=== PATIENT | male | born 1985 | race Native Hawaiian/Other Pacific Islander ===

== ENCOUNTER 2022-05-04 02:41 | Emergency (ER) | payer BC, SELFPAY ==
[2022-05-04 02:41] VITALS: BP 138/71; PULSE 101; RESP 22; TEMP 35.3; O2SAT 98; BMI 28.7
--- NOTE | 2022-05-04 02:54 | ED.MALEGU ---
HPI - Male Genitourinary General Time Seen by Provider: 02:50 Date Seen: 05/04/22 Chief complaint: Urogenital Problems, Male Stated complaint: Groin Pain Time Seen by Provider: 05/04/22 02:54 Source: patient, family and RN notes reviewed Mode of arrival: ambulatory Limitations: no limitations History of Present Illness HPI Narrative: Patient is a very pleasant 36-year-old male in obvious distress who comes to the emergency room with a sudden onset of left flank pain this morning. Patient notes it was sudden in onset and the pain radiated into his left groin after initially being located just in the left flank. This was associated with nausea and inability to find a comfortable position. Patient has not been ill. Denies any dysuria or blood in his urine. He has not had fever or chills. He has no personal history of kidney stones. Denies any recent injury. Related Data Home Medications Medication Instructions Recorded Confirmed No Known Home Medications 05/04/22 05/04/22 Allergies Allergy/AdvReac Type Severity Reaction Status Date / Time No Known Drug Allergies Allergy Verified 05/04/22 03:23 Review of Systems Status of ROS: Reports: 6 or more systems reviewed and unremarkable except as noted in History and below Const: Denies: fever ENMT: Denies: throat pain Cardio: Denies: chest pain, swelling of feet/ankles or shortness of breath with exertion Resp: Denies: shortness of breath or cough GI: Reports: nausea; Denies: abdominal pain, vomiting or diarrhea : Denies: painful urination, urinary frequency, urinary urgency or blood in urine Musculo: Reports: back pain (Left flank) PFSH PFSH Medical History Patient denies medical problems Social History Smoking Status: Former smoker What tobacco products do you use: cigarettes Smoking quit date/years: <= 15 years ago Do you use any of these nicotine containing products: None Second hand tobacco smoke exposure: No How often do you have a drink containing alcohol: never AUDIT-C Alcohol total score: 0 Non-prescribed substance use: denies use service: No Exam Narrative: Exam Narrative: Patient initially in acute distress kneeling next to the bed. Eyes are clear. Oral cavity moist mucous membranes. Heart with regular rate and rhythm. Lungs are clear to auscultation bilaterally. No CVA tenderness with percussion. Abdomen soft nontender. Palpation in the testicular area without evidence of abnormality. No pain with palpation in the scrotum. Lower extremities without edema. Const: Vital Signs, click to edit/add: Vital Signs - 24 hr 05/04/22 02:41 05/04/22 04:00 Temperature 95.5 F L Pulse Rate [Right Pulse Oximeter] 101 H 83 Respiratory Rate 22 20 Blood Pressure [Le ft Upper Arm] 138/71 136/91 H Pulse Oximetry 98 95 Oxygen Delivery Me thod Room Air Documenting provider has reviewed patient's vital signs: yes Course Course Hospital Course: Differential diagnosis includes but is not limited to ureteral colic, nephrolithiasis, muscular strain, shingles, intra-abdominal process. Patient had IV placed. Was given Toradol 15 mg, morphine 4 mg and Zofran 4 mg with only minimal improvement of discomfort. Patient then received Dilaudid 0.5 mg with excellent relief of symptoms. Upon return from CT pain was returning and an additional dose of Dilaudid 0.5 mg was given. Patient has not yet given a urine sample and we are waiting on that collection. Vital Signs Vital signs: Initial Vital Signs Temperature 95.5 F L 05/04/22 02:41 Temperature Source Temporal Artery Scan 05/04/22 02:41 Pulse Rate 101 H 05/04/22 02:41 Respiratory Rate 22 05/04/22 02:41 Blood Pressure 138/71 05/04/22 02:41 Blood Pressure Mean 93 05/04/22 02:41 Blood Pressure Position Standing 05/04/22 02:41 Pulse Oximetry 98 05/04/22 02:41 Oxygen Delivery Method 05/04/22 02:41 Vital Signs Temperature 95.5 F L 05/04/22 02:41 Pulse Rate 101 H 05/04/22 02:41 Respiratory Rate 22 05/04/22 02:41 Blood Pressure 138/71 05/04/22 02:41 Pulse Oximetry 98 05/04/22 02:41 Oxygen Delivery Method 05/04/22 02:41 Temperature 95.5 F L 05/04/22 02:41 Pulse Rate 83 05/04/22 04:00 Respiratory Rate 20 05/04/22 04:00 Blood Pressure 136/91 H 05/04/22 04:00 Pulse Oximetry 95 05/04/22 04:00 Oxygen Delivery Method 05/04/22 02:41 MDM - Male Genitourinary MDM Narrative Medical decision making narrative: 1. Ureteral colic-patient initially given Toradol 15 mg, morphine 4 mg, Zofran 4 mg only minimally helped pain. Patient was then given Dilaudid 0.5 mg x 2 with good pain relief. Ultimately we did given ketamine 20 mg IV piggyback and Ativan 0.5 mg which seems to have helped him quite a bit. It appears patient has a 3 mm stone in the left distal ureter with hematuria but no evidence of UTI. I have asked him to strain his urine from this point on. If he notes that a stone passes and he has pain relief then he does not need further follow-up. However, if he has continued pain and he does not note any stone he will need to be seen by his primary MD. He may need urological consult if this occurs. Of course, if he has worsening pain especially if he starts experiencing fever or persistent vomiting he will need to return to the emergency room. Going home he may use Toradol 10 mg p.o. t.i.d. p.r.n. pain, number 15 via [employer]. For pain not relieved by a Toradol we will need to use oxycodone as we have unfortunately been notified that we have a shortage of [place]. I did speak to patient about oxycodone being addicting. He is to use this minimally. Finally Zofran 4 mg ODT Q 8 hours p.r.n. nausea. A check of the [employer] shows no recent prescriptions. 2. Disposition-home significant other. Return for worsening symptoms. Push fluids. Lab Data Attestation: I reviewed the patient's lab results. Labs: Lab Results 05/04/22 05/04/22 05/04/22 Range/Units 02:55 02:55 05:30 WBC 6.95 (4.50-11.00) K/uL RBC 5.19 (4.30-5.90) m/uL Hgb 14.8 (13.5-17.5) gm/dL Hct 42.6 (37.0-53.0) % MCV 82 (80-100) fL MCH 29 (26-34) pg MCHC 35 (32-36) gm/dL RDW Coeff of Leslie 12.2 (11.5-15.5) % Plt Count 242 (140-440) K/uL Neut % (Auto) 45.7 (42.0-72.0) % Lymph % (Auto) 42.6 (20-44) % [place] % (Auto) 7.2 (0.0-11.0) % Eos % (Auto) 3.7 (0.0-7.0) % Baso % (Auto) 0.4 (0.0-3.0) % Neut # (Auto) 3.17 (1.7-7.0) K/uL Lymph # (Auto) 2.96 H (0.90-2.90) K/uL [place] # (Auto) 0.50 (0.00-0.90) K/UL Eos # (Auto) 0.26 (0.00-0.50) K/uL Baso # (Auto) 0.03 (0.00-0.30) K/uL Sodium 143 (135-149) mmol/L Potassium 4.1 (3.6-5.1) mmol/L Chloride 108 (96-114) mmol/L Carbon Dioxide 24 (20-32) mmol/L BUN 18 (5-24) mg/dL Creatinine 0.9 (0.5-1.5) mg/dL Estimated Creat Clear 114.91 Estimated GFR 112 ml/min Glucose 169 H (60-115) mg/dL Calcium 8.9 (8.4-10.6) mg/dL Urine Color Yellow (Yellow) Urine Appearance Clear (Clear) Urine pH 6.5 (5.0-8.5) Ur Specific [place] >= 1.030 (1.000-1.030) Urine Protein Negative (Negative) Urine Glucose (UA) Negative (Negative) Urine Ketones Negative (Negative) Urine Blood 3+ A (Negative) Urine Nitrite Negative (Negative) Urine Bilirubin Negative (Negative) Urine Urobilinogen 0.2 (0.2-1.0) Ur Leukocyte Esterase Negative (Negative) Urine RBC 10-25 A (0-2) Urine WBC 0-2 (0-5) Ur Squamous Epith Cells Few (None-Few) Urine Bacteria None (None) Imaging Data CT scan - abdomen: Attestation: I have reviewed the pertinent imaging results. Radiologist's impression: [place] [address] Diagnostic Imaging Report Patient: Patricio Wilkerson MR#: [id number] : 1985 Acct:[id number] Loc: ED Service Date: 05/04/[address]: Ordering Physician: Shea Todd M.D. Date of Service: 05/04/22 Procedure(s): CT abdomen pelvis wo con Accession Number(s): [id number] cc: Shea Todd M.D.~ For Patients:? As a result of the Cures Act, medical imaging exams and procedure reports are released immediately into your electronic medical record.? You may view this report before your referring provider.? If you have questions, please contact your health care provider. INDICATION: Left flank and testicle pain. TECHNIQUE: CT abdomen and pelvis without contrast. COMPARISON: None. FINDINGS: Lower chest: Unremarkable. Liver: Normal in size and attenuation. No suspicious masses. Gallbladder and bile ducts: No stones or inflammation. No biliary ductal dilatation. Spleen: Normal in size. No masses. Adrenal glands: Normal in size. No nodules. Pancreas: Unremarkable. No mass or inflammation. Kidneys: 3 mm calculus in the distal left ureter. Minimal upstream left hydroureteronephrosis. Punctate nonobstructive calculus in the left renal lower pole. Right kidney is unremarkable. GI tract: Unremarkable. Normal in caliber. No sign of mass or inflammation. Normal appendix. Lymph nodes: No lymphadenopathy. Vasculature: Unremarkable. Abdominal wall/Omentum/Peritoneum: Unremarkable. No free air or significant free fluid. Pelvis: Unremarkable. No pelvic masses. Bones: Unremarkable for age. IMPRESSION: 1. 3 mm distal left ureteral calculus with minimal upstream hydroureteronephrosis. 2. Punctate left nonobstructive nephrolithiasis. Discharge Plan Discharge Clinical Impression: Colic, ureteral, Nephrolithiasis Patient Disposition: Home, Self-Care Condition: Improved Additional Instructions: Toradol may be used for discomfort. This is an anti-inflammatory much like ibuprofen. For pain not relieved by Toradol you may use oxycodone sparingly. This is an addictive medication and should not be given away or shared with others. If you are nauseated you may use Zofran prior to taking medications. Strain your urine. Follow-up with your primary MD for ongoing symptoms. If you see this stone pass and have resolution of your symptoms you do not need to be seen unless you have continued discomfort. Prescriptions: No Action No Known Home Medications Follow Up/Referrals: Argentina Godoy DO [Primary Care Provider] - Stand Alone Forms: [employer] Info Instructions
--- NOTE | 2022-05-04 02:55 | CRLHL7_ITS ---
For Patients: As a result of the Century Cures Act, medical imaging exams and procedure reports are released immediately into your electronic medical record. You may view this report before your referring provider. If you have questions, please contact your health care provider. INDICATION: Left flank and testicle pain. TECHNIQUE: CT abdomen and pelvis without contrast. COMPARISON: None. FINDINGS: Lower chest: Unremarkable. Liver: Normal in size and attenuation. No suspicious masses. Gallbladder and bile ducts: No stones or inflammation. No biliary ductal dilatation. Spleen: Normal in size. No masses. Adrenal glands: Normal in size. No nodules. Pancreas: Unremarkable. No mass or inflammation. Kidneys: 3 mm calculus in the distal left ureter. Minimal upstream left hydroureteronephrosis. Punctate nonobstructive calculus in the left renal lower pole. Right kidney is unremarkable. GI tract: Unremarkable. Normal in caliber. No sign of mass or inflammation. Normal appendix. Lymph nodes: No lymphadenopathy. Vasculature: Unremarkable. Abdominal wall/Omentum/Peritoneum: Unremarkable. No free air or significant free fluid. Pelvis: Unremarkable. No pelvic masses. Bones: Unremarkable for age. IMPRESSION: 1. 3 mm distal left ureteral calculus with minimal upstream hydroureteronephrosis. 2. Punctate left nonobstructive nephrolithiasis. Please note that all CT scans at this facility use dose modulation, iterative reconstruction, and/or weight-based dosing when appropriate to reduce radiation dose to as low as reasonably achievable. Dictated by Oumar Saeed MD @ 05/04/2022 4:04:29 AM (Electronically Signed)
[2022-05-04] MEDS: KETOROLAC 15 MG/ML inj IVP (03:00)
[2022-05-04] MEDS: ONDANSETRON 2 MG/ML inj 4 MG IVP (03:01)
[2022-05-04] MEDS: MORPHINE 4 MG/ML INJ IVP (03:02)
[2022-05-04 03:05] LABS: Basophils Absolute Auto 0.03 K/uL (0.00-0.30); Basophils Percent Auto 0.4 % (0.0-3.0); Eosinophils Absolute Auto 0.26 K/uL (0.00-0.50); Eosinophils Percent Auto 3.7 % (0.0-7.0); Hematocrit 42.6 % (37.0-53.0); Hemoglobin* 14.8 gm/dL (13.5-17.5); Immature Granulocytes Abs Auto 0.03 K/uL (0.00-0.30); Immature Granulocytes Pct Auto 0.4 %; Lymphocytes Absolute Auto 2.96 K/uL (0.90-2.90); Lymphocytes Percent Auto 42.6 % (20-44); Mean Corpuscular HGB Conc 35 gm/dL (32-36); Mean Corpuscular Hemoglobin 29 pg (26-34); Mean Corpuscular Volume 82 fL (80-100); Monocytes Percent Auto 7.2 % (0.0-11.0); Neutrophils Absolute Auto 3.17 K/uL (1.7-7.0); Neutrophils Percent Auto 45.7 % (42.0-72.0); Platelet Count* 242 K/uL (140-440); RDW Coefficient of Variation % 12.2 % (11.5-15.5); Red Blood Count 5.19 m/uL (4.30-5.90); White Blood Count* 6.95 K/uL (4.50-11.00)
[2022-05-04 03:17] LABS: Chloride* 108 mmol/L (96-114); Potassium* 4.1 mmol/L (3.6-5.1); Sodium* 143 mmol/L (135-149)
[2022-05-04] MEDS: 0.9 % SODIUM CHLORIDE 500 ML 500 ML IV ×2 (03:18→04:20)
[2022-05-04 03:20] LABS: Blood Urea Nitrogen* 18 mg/dL (5-24); Carbon Dioxide* 24 mmol/L (20-32); Creatinine* 0.9 mg/dL (0.5-1.5); Est. Creatinine Clearance* 114.91; Estimated Glomerular Filt Rate 112 ml/min; Glucose* 169 mg/dL (60-115)
[2022-05-04 03:21] LABS: Calcium* 8.9 mg/dL (8.4-10.6)
[2022-05-04] MEDS: HYDROmorphone 0.5 mg/0.5 ml inj IVP ×3 (03:21→07:00)
[2022-05-04 03:39] LABS: Slide Review Reflex No
[2022-05-04 04:00] VITALS: BP 136/91; PULSE 83; RESP 20; O2SAT 95
[2022-05-04] MEDS: LORazepam 2 MG/ML inj 0.5 MG IVP (04:52)
[2022-05-04] MEDS: KETAMINE HCL 20 MG in 0.9 % SODIUM CHLORIDE 100 ml 100 ML 200.4 MG IVPB (04:52)
[2022-05-04 05:57] LABS: Appearance Urine Clear (Clear); Bilirubin Urine Negative (Negative); Blood Urine 3+ (Negative); Color Urine Yellow (Yellow); Glucose Urine Negative (Negative); Ketones Urine Negative (Negative); Leukocyte Esterase Urine Negative (Negative); Nitrite Urine Negative (Negative); Protein Urine Negative (Negative); Specific Gravity Urine >= 1.030 (1.000-1.030); Urobilinogen Urine 0.2 (0.2-1.0); pH Urine 6.5 (5.0-8.5)
[2022-05-04 06:36] LABS: Squamous Epithelial Cell Urine Few (None-Few); WBC Urine 0-2 (0-5)
== END 2022-05-04 07:10 | disposition home or self-care (01) ==
PROVIDERS: Emergency Provider Family Medicine; PCP Family Medicine
DX: N20.2 Calculus of kidney with calculus of ureter (principal)
CPT/HCPCS: 36415; 74176; 80048; 81001; 85025; 96365; 96375; 99284; J1170; J1885; J2060; J2270; J2405; J3490; J7120

== ENCOUNTER 2022-12-24 17:56 | Day surgery (SDC) | payer BC, SELFPAY ==
[2022-12-24 17:59] VITALS: BP 128/88; PULSE 79; RESP 18; TEMP 36.3; O2SAT 100; BMI 28.7
--- NOTE | 2022-12-24 18:05 | ED_ITS ---
HPI - Abdominal Pain General Date Seen: 12/24/22 Chief Complaint: Abdominal Pain Stated Complaint: Abdominal pain Time Seen by Provider: 12/24/22 18:00 History of Present Illness HPI narrative: 37-year-old male with a history of kidney stones (3 mm left ureteral stone diagnosed in the ER here at [facility] on 05/04/22) presents to the ER today for evaluation of abdominal pain. He presents here to the ER with his . He is generally healthy. He does not take any regular medications. No medication allergies. He has not had any recent symptoms. Beginning in mid morning at roughly 11 or 10:00 a.m. this morning he began to have pain in his abdomen. It started in the epigastrium or perhaps slightly to the left midline. There was intense in nature. It felt like he was very hungry. He was mildly nauseous but has not vomited. Pain was fairly bad for a couple of hours this morning and then got better. It never completely resolved. Pain then worsened and became more severe after about 2:30 p.m. nothing really makes it better or worse. It does not really seem to change with position. He has been nauseous but not vomiting. Bowel movements have been normal and brown lately. No urinary symptoms. No fever but he has had some chills this afternoon. He is very uncomfortable. He does not use NSAIDs or other iloe-nqc-qbieqol medications. No trauma. No flank pain. The pain does not radiate. Related Data Home Medications Medication Instructions Recorded Confirmed No Known Home Medications 05/04/22 05/04/22 Allergies Allergy/AdvReac Type Severity Reaction Status Date / Time No Known Drug Allergies Allergy Verified 05/04/22 03:23 [facility] Medical History (Updated 12/24/22 @ 22:13 by Orlin Rodríguez MD) Nephrolithiasis ?N20.0 - Calculus of kidney (ICD-10) Patient denies medical problems ?Z78.9 - Other specified health status (ICD-10) Family History (Updated 12/24/22 @ 22:08 by Orlin Rodríguez MD) Grandfather Kidney stones Social History (Updated 12/24/22 @ 22:10 by Orlin Rodríguez MD) Narrative: He presents to the emergency department with his . He has 3 children ages 3, 8 and 12. 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 He does smoke about 3 cigarettes per day. He drinks alcohol about once every 3 months Smoking Status: Current some day smoker What tobacco products do you use: cigarettes Smoking quit date/years: <= 15 years ago Do you use any of these nicotine containing products: None Second hand tobacco smoke exposure: No How often do you have a drink containing alcohol: monthly or less AUDIT-C Alcohol total score: 1 Non-prescribed substance use: denies use service: No Exam Narrative: Exam Narrative: Constitutional: Appears well-developed and well-nourished. Alert. Conversant. Uncomfortable appearing but polite. HENT: Head: Atraumatic. Nose: Nose normal. Mouth/Throat: Oral mucosa is clear and moist. no trismus. Pharynx normal. Tonsils symmetric. No tonsillar enlargement, erythema, or exudate. Eyes: Conjunctivae normal. EOM normal. Pupils equal, round, and reactive to light. No scleral icterus. Neck: Normal range of motion. Neck supple. No tracheal deviation present. Cardiovascular: Normal rate, regular rhythm. No gallop. No friction rub. No murmur heard. Symmetric radial artery pulses Pulmonary/Chest: Effort normal. No stridor. No respiratory distress. No wheezes. No rales. No rhonchi . No tenderness. Abdominal: Soft. Bowel sounds normal. No distension. No mass. Groaning in pain, palpation of his abdomen generally does not elicit much tenderness but he has a slight wince with palpation in the epigastrium and left upper quadrant. No right upper quadrant tenderness or Mckeon sign. No definite right lower quadrant tenderness. No psoas sign. No Rovsing sign. No rebound. No guarding. Musculoskeletal: RUE: Normal range of motion. No tenderness. No deformity LUE: Normal range of motion. No tenderness. No deformity RLE: Normal range of motion. No edema. No tenderness. No deformity LLE: Normal range of motion. No edema. No tenderness. No deformity Neurological: Alert and oriented to person, place, and time. Normal strength. CN II-VII intact. No sensory deficit. GCS eye subscore is 4. GCS verbal subscore is 5. GCS motor subscore is 6. Normal coordination Skin: Skin is warm and dry. No rash noted. No pallor. Normal capillary refill. Psychiatric: Normal mood. Normal affect allowing for pain Const: Vital Signs, click to edit/add: Vital Signs - 24 hr 12/24/22 17:59 12/24/22 19:29 Temperature 97.4 F L Pulse Rate [Pulse Oximeter] 79 76 Respiratory Rate 18 18 Blood Pressure [Ri ght Upper Arm] 128/88 133/85 Pulse Oximetry 100 18 L Oxygen Delivery Me thod Room Air Room Air Course Reevaluation(s) Reevaluation #1: Recheck-after Dilaudid pain somewhat improved. Able to ambulate in the hallway to the bathroom. Hemodynamically stable. Reevaluation #2: Recheck-discussed with surgery, Dr. Matias. She is not able to review the patient's CT images for herself tonight because of unexpected server security administrator crash affecting the radiology system. She would recommended admission for IV antibiotics and monitoring tonight with plan for her to evaluate in the morning with servers fixed and potentially take to the OR for appendectomy. Reevaluation #3: Recheck the patient. Discussed findings with the patient and his . They agree to the plan for admission, antibiotics, observation. Discussed with hospitalist, Dr. Rodríguez who agrees to admit. Vital Signs Vital signs: Initial Vital Signs Temperature 97.4 F L 12/24/22 17:59 Temperature Source Temporal Artery Scan 12/24/22 17:59 Pulse Rate 79 12/24/22 17:59 Pulse Rhythm Regular 12/24/22 17:59 Respiratory Rate 18 12/24/22 17:59 Blood Pressure 128/88 12/24/22 17:59 Blood Pressure Mean 101 12/24/22 17:59 Blood Pressure Position Sitting 12/24/22 17:59 Pulse Oximetry 100 12/24/22 17:59 Oxygen Delivery Method Room Air 12/24/22 17:59 Vital Signs Temperature 97.4 F L 12/24/22 17:59 Pulse Rate 79 12/24/22 17:59 Respiratory Rate 18 12/24/22 17:59 Blood Pressure 128/88 12/24/22 17:59 Pulse Oximetry 100 12/24/22 17:59 Oxygen Delivery Method Room Air 12/24/22 17:59 Temperature 97.4 F L 12/24/22 17:59 Pulse Rate 76 12/24/22 19:29 Respiratory Rate 18 12/24/22 19:29 Blood Pressure 133/85 12/24/22 19:29 Pulse Oximetry 18 L 12/24/22 19:29 Oxygen Delivery Method Room Air 12/24/22 19:29 MDM - Abdominal Pain MDM Narrative Medical decision making narrative: Presented to the Emergency Department with upper abdominal pain. The differential diagnosis of abdominal pain includes: Early Appendicitis, Bowel Obstruction, Ulcer, Ischemia, Cholecystitis, Diverticulitis, Pancreatitis, UTI, kidney stone, Enteritis/Colitis, amongst many other etiologies. Laboratory testing does not reveal a cause for the patient's pain. CT imaging shows a somewhat confusing picture. There is evidence for acute appendicitis with an enlarged, fluid-filled appendix with para appendiceal stranding. No evidence for any rupture or free fluid. It is possible of the patient's pain, being sheyla adal upper, could represent early appendicitis, prior to migration. However based on the size of the appendix on CT imaging, would expect more significant lower pain to be present at this time. CT scan also shows evidence for colitis affecting the cecum, ascending colon, transverse colon. Patient has not had any recent diarrhea or suspicious food intake to raise concern for infectious enteritis. No history of inflammatory bowel disease in the past. At this point he is hemodynamically stable, afebrile, nontoxic, and has reassuring labs. We will start the patient on broad-spectrum antibiotics here in the ER tonight admitted to the hospitalist service with plan for careful monitoring tonight and surgical consult by morning. Medical Records Attestation: I reviewed the patient's medical records. Lab Data Labs: Lab Results 12/24/22 12/24/22 Range/Units 18:24 18:43 WBC 10.14 (4.50-11.00) K/uL RBC 5.07 (4.30-5.90) m/uL Hgb 14.4 (13.5-17.5) gm/dL Hct 41.8 (37.0-53.0) % MCV 82 (80-100) fL MCH 28 (26-34) pg MCHC 34 (32-36) gm/dL RDW Coeff of Leslie 12.1 (11.5-15.5) % Plt Count 301 (140-440) K/uL Neut % (Auto) 82.0 H (42.0-72.0) % Lymph % (Auto) 12.8 L (20-44) % [place] % (Auto) 4.1 (0.0-11.0) % Eos % (Auto) 0.7 (0.0-7.0) % Baso % (Auto) 0.2 (0.0-3.0) % Neut # (Auto) 8.30 H (1.7-7.0) K/uL Lymph # (Auto) 1.30 (0.90-2.90) K/uL [place] # (Auto) 0.40 (0.00-0.90) K/UL Eos # (Auto) 0.07 (0.00-0.50) K/uL Baso # (Auto) 0.02 (0.00-0.30) K/uL Abs Immat Gran (auto) 0.02 (0.00-0.30) K/uL Imm/Tot Granulo (auto) 0.2 % Sodium 138 (135-149) mmol/L Potassium 3.8 (3.6-5.1) mmol/L Chloride 105 (96-114) mmol/L Carbon Dioxide 23 (20-32) mmol/L Anion Gap 10 (7-15) mEq/L BUN 16 (5-24) mg/dL Creatinine 0.7 (0.5-1.5) mg/dL Estimated Creat Clear 146.29 Estimated GFR 120 ml/min Glucose 124 H (60-115) mg/dL Lactate 1.2 (0.5-1.9) mmol/L Total Bilirubin 0.7 (0.1-1.5) mg/dL AST 56 H (12-35) U/L ALT 89 H (4-50) U/L Alkaline Phosphatase 121 (40-150) U/L Total Protein 8.3 (6.0-8.3) g/dL Albumin 4.7 (3.3-5.0) g/dL Lipase 75 (23-300) U/L Urine Color Yellow (Yellow) Urine Appearance Clear (Clear) Urine pH 7.0 (5.0-8.5) Ur Specific [place] 1.025 (1.000-1.030) Urine Protein Negative (Negative) Urine Glucose (UA) Negative (Negative) Urine Ketones 3+ A (Negative) Urine Blood Negative (Negative) Urine Nitrite Negative (Negative) Urine Bilirubin Negative (Negative) Urine Urobilinogen 0.2 (0.2-1.0) Ur Leukocyte Esterase Negative (Negative) Urine RBC 0-2 (0-2) Urine WBC 0-2 (0-5) Ur Squamous Epith Cells None (None-Few) Urine Bacteria None (None) Discharge Plan Discharge Clinical Impression: Colitis, Appendicitis Patient Disposition: Admitted As Observation
--- NOTE | 2022-12-24 18:16 | CT_ITS ---
Patient: TAMARA LORENZO Facility:?[facility] Patient ID:?[id number] Site Patient ID:?[id number]. Site :?1985 Study:?CT-Abdomen/Pelvis W/98CC [id number]/22/2023 7:41:34 PM Ordering Physician:TOREY Final Report: INDICATION: Abdominal pain in middle of abdomen. TECHNIQUE: CT abdomen and pelvis acquired with 98 cc Isovue 370 IV contrast. Permanently recorded images are archived. COMPARISON: CT abdomen and pelvis [id number] FINDINGS: Lower chest: Unremarkable. Liver: Unremarkable. Normal in size and attenuation. No suspicious masses. Gallbladder and bile ducts: Unremarkable. No stones or inflammation. No biliary dilatation. Pancreas: Unremarkable. No mass or inflammation. Spleen: Unremarkable. Normal in size. No masses. Adrenal glands: Unremarkable. No nodules. Kidneys, Ureters, and Bladder: Unremarkable. No suspicious masses, stones, or hydronephrosis. Unremarkable ureters and bladder. GI tract: The appendix is fluid-filled and dilated up to 15 mm. There is a 7 mm appendicolith within its base. There is mild periappendiceal inflammatory stranding. There is mild mural thickening of the cecum, ascending colon, and transverse colon. Few sigmoid colon diverticula. Normal appendix. Vasculature: Abdominal aorta is normal in caliber. Mesenteric arteries are patent. Lymph nodes: No lymphadenopathy. Peritoneum/Abdominal Wall: Unremarkable. No free air or significant free fluid. Pelvis: Unremarkable. Bones: Unremarkable for age. IMPRESSION: Mild mural thickening of the cecum, ascending colon, and transverse colon, compatible with colitis, likely on the basis of an infectious or inflammatory process, to include inflammatory bowel disease such as Crohn`s disease. Dilated fluid-filled appendix measuring up to 15 mm with mild periappendiceal inflammatory stranding. These findings are compatible with acute appendicitis, potentially concurrent with the patient`s colitis. Another consideration is the appendiceal inflammation being reactive in the setting of Crohn`s colitis. Please note that all CT scans at this facility use dose modulation, iterative reconstruction, and/or weight-based dosing when appropriate to reduce radiation dose to as low as reasonably achievable. Dictated by Joaquim Valdez MD @ 12/24/2022 8:08:57 PM Signed by:?Joaquim Valdez MD @12/24/2022 8:08:57 PM (Electronic Signature)
[2022-12-24 18:31] LABS: Appearance Urine Clear (Clear); Bilirubin Urine Negative (Negative); Blood Urine Negative (Negative); Color Urine Yellow (Yellow); Glucose Urine Negative (Negative); Ketones Urine 3+ (Negative); Leukocyte Esterase Urine Negative (Negative); Nitrite Urine Negative (Negative); Protein Urine Negative (Negative); Specific Gravity Urine 1.025 (1.000-1.030); Urobilinogen Urine 0.2 (0.2-1.0)
[2022-12-24 18:39] LABS: RBC Urine 0-2 (0-2); WBC Urine 0-2 (0-5)
[2022-12-24 18:54] LABS: Lactate* 1.2 mmol/L (0.5-1.9)
[2022-12-24 18:59] LABS: Basophils Absolute Auto 0.02 K/uL (0.00-0.30); Basophils Percent Auto 0.2 % (0.0-3.0); Eosinophils Absolute Auto 0.07 K/uL (0.00-0.50); Eosinophils Percent Auto 0.7 % (0.0-7.0); Hematocrit 41.8 % (37.0-53.0); Hemoglobin* 14.4 gm/dL (13.5-17.5); Immature Granulocytes Abs Auto 0.02 K/uL (0.00-0.30); Immature Granulocytes Pct Auto 0.2 %; Lymphocytes Percent Auto 12.8 % (20-44); Mean Corpuscular HGB Conc 34 gm/dL (32-36); Mean Corpuscular Hemoglobin 28 pg (26-34); Mean Corpuscular Volume 82 fL (80-100); Monocytes Percent Auto 4.1 % (0.0-11.0); Platelet Count* 301 K/uL (140-440); RDW Coefficient of Variation % 12.1 % (11.5-15.5); Red Blood Count 5.07 m/uL (4.30-5.90); White Blood Count* 10.14 K/uL (4.50-11.00)
[2022-12-24 19:01] LABS: Slide Review Reflex No
[2022-12-24] MEDS: KETOROLAC 15 MG/ML inj IVP (19:04)
[2022-12-24] MEDS: ONDANSETRON 2 MG/ML inj 4 MG IVP (19:04)
[2022-12-24 19:07] LABS: Albumin* 4.7 g/dL (3.3-5.0); Chloride* 105 mmol/L (96-114); Potassium* 3.8 mmol/L (3.6-5.1); Sodium* 138 mmol/L (135-149)
[2022-12-24 19:09] LABS: Creatinine* 0.7 mg/dL (0.5-1.5); Est. Creatinine Clearance* 146.29; Estimated Glomerular Filt Rate 120 ml/min
[2022-12-24 19:10] LABS: Alanine Aminotransferase* 89 U/L (4-50); Alkaline Phosphatase* 121 U/L (40-150); Anion Gap 10 mEq/L (7-15); Aspartate Amino Transferase* 56 U/L (12-35); Bilirubin Total* 0.7 mg/dL (0.1-1.5); Blood Urea Nitrogen* 16 mg/dL (5-24); Carbon Dioxide* 23 mmol/L (20-32); Glucose* 124 mg/dL (60-115); Lipase* 75 U/L (23-300); Total Protein* 8.3 g/dL (6.0-8.3)
[2022-12-24 19:29] VITALS: BP 133/85; PULSE 76; RESP 18; O2SAT 18
[2022-12-24] MEDS: PIPERACILLIN/TAZOBACTAM 4.5 GM in 0.9 % SODIUM CHLORIDE Mini-bag 100 ML IVPB (21:14)
[2022-12-24] MEDS: HYDROmorphone 0.5 mg/0.5 ml inj IVP ×2 (21:22→23:00)
[2022-12-24] MEDS: LACTATED RINGERS 1000 ML 1,000 ML 125 ML IV (22:00)
--- NOTE | 2022-12-24 22:00 | PC.NURSE ---
patient admitted to M/S room 258, all belongins sent with patient and . report given Opal giordano/willam PEREZ
--- NOTE | 2022-12-24 22:05 | PM.IMHP1 ---
Hospitalist- H&P: HPI History of Present Illness Date Seen: 12/24/22 Chief complaint: Abdominal pain Narrative: Patricio Wilkerson is a 37 year old male who was in his usual state of good health until 10:00 a.m. today when he had onset of epigastric pain. This progressively got worse during the day and he came to the emergency room this evening for evaluation. He did eat lunch today without any difficulties. He left work around 2:00 P.m. because of the pain. He had a normal bowel movement around 3 p.m.. He has had no vomiting. No fever. No previous abdominal surgery. He has a history of a kidney stone last April. He has had no previous history of any other gastrointestinal, genitourinary or abdominal problems. He reports he has been healthy recently. No recent illness until today Review of Systems Narrative: Unremarkable except as above [facility] Medical History (Updated 12/24/22 @ 22:13 by Orlin Rodríguez MD) Nephrolithiasis ?N20.0 - Calculus of kidney (ICD-10) Patient denies medical problems ?Z78.9 - Other specified health status (ICD-10) Family History (Updated 12/24/22 @ 22:08 by Orlin Rodríguez MD) Grandfather Kidney stones Social History (Updated 12/24/22 @ 22:10 by Orlin Rodríguez MD) Narrative: He presents to the emergency department with his . He has 3 children ages 3, 8 and 12. 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 He does smoke about 3 cigarettes per day. He drinks alcohol about once every 3 months Smoking Status: Current some day smoker What tobacco products do you use: cigarettes Smoking quit date/years: <= 15 years ago Do you use any of these nicotine containing products: None Second hand tobacco smoke exposure: No How often do you have a drink containing alcohol: monthly or less AUDIT-C Alcohol total score: 1 Non-prescribed substance use: denies use service: No Meds Home Medications and Allergies Home Medications Medication Instructions Recorded Confirmed Type No Known Home Medications 05/04/22 05/04/22 History Home Medication Comments: Occasional Tylenol but not recently Allergies Allergy/AdvReac Type Severity Reaction Status Date / Time No Known Drug Allergies Allergy Verified 05/04/22 03:23 Exam Narrative: Exam Narrative: He is alert and appears in no distress. He gives his own history. Eyes are normal. Sclerae nonicteric. Oropharynx normal. Neck is supple without mass or adenopathy. Respirations are clear to auscultation. Cardiovascular: S1, S2, regular rate and rhythm. No murmur gallop or rub. Abdomen: Bowel sounds active. Abdomen is soft without tenderness or mass. Specifically no epigastric or right-sided abdominal tenderness on exam. Extremities are well perfused with good capillary refill, no edema, good pulses Const: Vital Signs, click to edit/add: Vital Signs - 24 hr 12/24/22 17:59 12/24/22 19:29 Temperature 97.4 F L Pulse Rate [Pulse Oximeter] 79 76 Respiratory Rate 18 18 Blood Pressure [Ri t Upper Arm] 128/88 133/85 Pulse Oximetry 100 18 L Oxygen Delivery Me thod Room Air Room Air Documenting provider has reviewed patient's vital signs: yes Hospitalist - H&P: Result Labs Labs: Short CBC 12/24/22 Range/Units 18:43 WBC 10.14 (4.50-11.00) K/uL Hgb 14.4 (13.5-17.5) gm/dL Hct 41.8 (37.0-53.0) % Plt Count 301 (140-440) K/uL BMP 12/24/22 18:43 Sodium 138 Potassium 3.8 Chloride 105 Carbon Dioxide 23 BUN 16 Creatinine 0.7 Glucose 124 H Liver Function 12/24/22 Range/Units 18:43 Total Bilirubin 0.7 (0.1-1.5) mg/dL AST 56 H (12-35) U/L ALT 89 H (4-50) U/L Alkaline Phosphatase 121 (40-150) U/L Albumin 4.7 (3.3-5.0) g/dL Urine 12/24/22 Range/Units 18:24 Urine Color Yellow (Yellow) Urine Appearance Clear (Clear) Urine pH 7.0 (5.0-8.5) Ur Specific [place] 1.025 (1.000-1.030) Urine Protein Negative (Negative) Urine Glucose (UA) Negative (Negative) Assessment and Plan Assessment and plan (1) Appendicitis: Problem comment: Uncertain if CT findings are due to colitis primarily or there is concomitant appendicitis with colitis. Consult surgery. Start antibiotic, Zosyn. Possible appendectomy in the morning Status: Acute (2) Colitis: Problem comment: Ascending and transverse colitis Status: Acute Plan Admit to the hospital for IV fluids, IV antibiotics and possible appendectomy Total time spent today is 55 minutes, 40 minutes in coordination of care and discussing with patient, his and other providers plan for managing abdominal pain and colitis and appendicitis
[2022-12-24 22:24] VITALS: BP 142/97; PULSE 81; RESP 20; TEMP 36.9; O2SAT 96; BMI 32.3
[2022-12-24 23:00] VITALS: BP 142/97; PULSE 81; RESP 20; TEMP 36.9; O2SAT 96
[2022-12-25] VITALS (14 sets, daily range): BP systolic 105–136; BP diastolic 72–89; PULSE 70–101; RESP 12–20; TEMP 36.1–37.1; O2SAT 92–100
[2022-12-25] MEDS: PIPERACILLIN/TAZOBACTAM 3.375 GM in 0.9 % SODIUM CHLORIDE Mini-bag 100 ML IVPB (02:51)
[2022-12-25] MEDS: HYDROmorphone 0.5 mg/0.5 ml inj IVP ×2 (02:51→05:03)
[2022-12-25] MEDS: LACTATED RINGERS 1000 ML 1,000 ML 125 ML IV (05:03)
--- NOTE | 2022-12-25 06:06 | PC.NURSE ---
Shift note: Pt c/o lower abdominal pain 3-7/10, RN treated per eMAR with relief to 0/10 and was able to rest. NPO since admission
--- NOTE | 2022-12-25 06:41 | PM.GSCN ---
History of Present Illness Consult details Date Seen: 12/25/22 Consult date: 12/25/22 Narrative: The patient is a 37-year-old male with no significant medical or surgical history who developed severe epigastric pain yesterday morning. The pain was company by nausea but no vomiting. He has never had pain like this previously. He has not had any urinary symptoms, change in bowel habits fevers, chest pain or shortness of breath. He came into the emergency depart it where he was found to have a normal white blood cell count, mildly elevated AST and ALT and CT scan showed possible colitis with a dilated appendix. He was admitted and placed on antibiotics. Overnight he states that the pain has moved to his right lower quadrant. [facility] Medical History (Updated 12/24/22 @ 22:13 by Orlin Rodríguez MD) Nephrolithiasis ?N20.0 - Calculus of kidney (ICD-10) Patient denies medical problems ?Z78.9 - Other specified health status (ICD-10) Family History (Updated 12/24/22 @ 22:08 by Orlin Rodríguez MD) Grandfather Kidney stones Social History (Updated 12/24/22 @ 22:10 by Orlin Rodríguez MD) Narrative: He presents to the emergency department with his . He has 3 children ages 3, 8 and 12. 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 He does smoke about 3 cigarettes per day. He drinks alcohol about once every 3 months What is your current living situation?: I presently have a place to live Problems where you live: no known problems Problems where you live details: N/A In the past 12 months, utilities in danger of being shut off: no In the past 12 mos, have been you worried that your food would run out before you had money to buy more?: never true In the past 12 mos, the food you bought just didn't last and you didn't have money to buy more?: never true Highest level of school completed/degree received: some college, no degree Smoking Status: Current every day smoker What tobacco products do you use: cigarettes Smoking quit date/years: <= 15 years ago Do you use any of these nicotine containing products: None Second hand tobacco smoke exposure: No How often do you have a drink containing alcohol: 2-4 times a month How many standard drinks containing alcohol do you have on a typical day: 1 or 2 How often do you have six or more drinks on one occasion: Never AUDIT-C Alcohol total score: 2 Non-prescribed substance use: denies use Caffeine: Yes (2/day) How often does anyone, including family, friends and others, physically hurt you: never How often does anyone, including family, friends and others, insult or talk down to you: never How often does anyone, including family, friends and others, threaten you with harm: never How often does anyone, including family, friends and others, scream or curse at you: never service: No Meds Home Medications and Allergies Home Medications Medication Instructions Recorded Confirmed Type No Known Home Medications 05/04/22 05/04/22 History Allergies Allergy/AdvReac Type Severity Reaction Status Date / Time No Known Drug Allergies Allergy Verified 05/04/22 03:23 Exam Narrative: Exam Narrative: General appearance: Alert, cooperative, and in no distress Eyes: PERRLA, eye lids clear, and sclera white HENT Head: Normocephalic Ears: External ears normal Pulmonary: Breathing nonlabored on room air Cardiovascular Heart: Regular rate Extremities: warm and well perfused Gastrointestinal Abdominal: No scars. No hernias. He is tender in the right lower quadrant with guarding and rebound. Musculoskeletal: Extremities: Upper: Both upper extremities have normal joint range of motion and intact strength. Lower: Both lower extremities have normal joint range of motion and intact strength. Skin: Normal skin color, texture, and turgor. Neurologic: No focal deficits Psychiatric: Alert, oriented, cooperative, normal affect. Const: Vital Signs, click to edit/add: Vital Signs - 24 hr 12/24/22 17:59 12/24/22 19:29 12/24/22 22:24 Temperature 97.4 F L 98.4 F Pulse Rate [Pulse Oximeter] 79 76 81 Respiratory Rate 18 18 20 Blood Pressure [Ri ght Radial Artery] 142/97 H Blood Pressure [Ri ght Upper Arm] 128/88 133/85 Pulse Oximetry 100 18 L 96 Oxygen Delivery Me thod Room Air Room Air Room Air 12/24/22 23:00 12/24/22 23:00 12/25/22 03:00 Temperature 98.4 F 98 F Pulse Rate [Pulse Oximeter] 81 81 78 Respiratory Rate 20 20 18 Blood Pressure [Ri ght Radial Artery] 142/97 H 129/81 Blood Pressure [Ri t Upper Arm] Pulse Oximetry 96 97 Oxygen Delivery Me thod Room Air Room Air Results Labs Labs: Abnormal lab results 12/24/22 12/24/22 Range/Units 18:24 18:43 Neut % (Auto) 82.0 H (42.0-72.0) % Lymph % (Auto) 12.8 L (20-44) % Neut # (Auto) 8.30 H (1.7-7.0) K/uL Glucose 124 H (60-115) mg/dL AST 56 H (12-35) U/L ALT 89 H (4-50) U/L Urine Ketones 3+ A (Negative) Diabetes panel 12/24/22 Range/Units 18:43 Sodium 138 (135-149) mmol/L Potassium 3.8 (3.6-5.1) mmol/L Chloride 105 (96-114) mmol/L Carbon Dioxide 23 (20-32) mmol/L BUN 16 (5-24) mg/dL Creatinine 0.7 (0.5-1.5) mg/dL Glucose 124 H (60-115) mg/dL AST 56 H (12-35) U/L ALT 89 H (4-50) U/L Alkaline Phosphatase 121 (40-150) U/L Total Protein 8.3 (6.0-8.3) g/dL Albumin 4.7 (3.3-5.0) g/dL Calcium panel 12/24/22 Range/Units 18:43 Albumin 4.7 (3.3-5.0) g/dL Pituitary panel 12/24/22 Range/Units 18:43 Sodium 138 (135-149) mmol/L Potassium 3.8 (3.6-5.1) mmol/L Chloride 105 (96-114) mmol/L Carbon Dioxide 23 (20-32) mmol/L BUN 16 (5-24) mg/dL Creatinine 0.7 (0.5-1.5) mg/dL Glucose 124 H (60-115) mg/dL Adrenal panel 12/24/22 Range/Units 18:43 Sodium 138 (135-149) mmol/L Potassium 3.8 (3.6-5.1) mmol/L Chloride 105 (96-114) mmol/L Carbon Dioxide 23 (20-32) mmol/L BUN 16 (5-24) mg/dL Creatinine 0.7 (0.5-1.5) mg/dL Glucose 124 H (60-115) mg/dL Total Bilirubin 0.7 (0.1-1.5) mg/dL AST 56 H (12-35) U/L ALT 89 H (4-50) U/L Alkaline Phosphatase 121 (40-150) U/L Total Protein 8.3 (6.0-8.3) g/dL Albumin 4.7 (3.3-5.0) g/dL All other labs normal. Imaging Abdomen CT scan report/results: report reviewed and image reviewed Additional studies: CT scan of the abdomen and pelvis done last evening shows: Mild mural thickening of the cecum, ascending colon transverse colon, compatible with colitis, likely on the basis of infection or inflammatory process, to include inflammatory bowel disease such as Crohn's disease. Dilated fluid-filled appendix measuring up to 15 cm with mild periappendiceal inflammatory stranding. These findings are compatible with acute appendicitis, potentially concurrent with the colitis. Another consideration is the appendiceal inflammation being reactive secondary to the setting of Crohn's colitis. Assessment and Plan Assessment and plan (1) Appendicitis: Problem comment: Uncertain if CT findings are due to colitis primarily or there is concomitant appendicitis with colitis. Consult surgery. Start antibiotic, Zosyn. Possible appendectomy in the morning Status: Acute (2) Colitis: Problem comment: Ascending and transverse colitis Status: Acute Plan The patient is a 37-year-old male with likely acute appendicitis. Initially the picture was slightly unclear given the normal white count, radiologist findings of extensive colitis and the patient has pain located mainly in the epigastrium, however his pain has now moved to the right lower quadrant and given how markedly dilated the appendix is, I think this is the most likely culprit. Given the amount of dilatation, even in the setting of inflammatory bowel disease I would recommend removing the appendix. Additionally, the patient has no diarrhea or other symptoms or history consistent with inflammatory bowel disease. We discussed appendectomy. This can most often be done laparoscopically. We discussed risks and benefits of the procedure including but not limited to bleeding, need for conversion to open, risk of injury to other structures, need for possible bowel resection, and abscess formation. The patient understands that the risk of abscess is higher if the appendix is perforated. For that reason, we generally keep patient is in the hospital on IV antibiotics until vital signs and white blood cell count had normalized. We also discussed recovery including 2 weeks of lifting restrictions. He is agreeable to proceed and we will plan on surgery this morning.
--- NOTE | 2022-12-25 06:48 | P.GSOP_ITS ---
Operative Note Pre-op diagnosis: Acute appendicitis Post-op diagnosis: Same Type of Procedure: Laparoscopic appendectomy Indications: The patient is a 37-year-old male who presented to the emergency department with epigastric abdominal pain. CT scan was obtained which showed a markedly dilated appendix, however there were some inflammatory changes about the colon which was thought to be possibly secondary to colitis, possibly inflammatory bowel disease. The patient has no history of this and had no other symptoms. The plan was to admit him for observation with likely appendectomy. Overnight his pain moved classically to the right lower quadrant. Because of this I recommended appendectomy and he agreed to proceed. Procedure Description: After discussing the risks and benefits of the procedure, the patient signed informed consent.? The operative site was marked and the patient was brought to the operating room and placed on the operating table in supine position.? Care was taken to pad the patient's pressure points.?? The patient was then intubated by anesthesia.?? The operative site was then prepped and draped in the usual sterile fashion.? A time-out was then performed. Entrance to the abdomen was obtained via a 5 mm optical trocar in the left upper quadrant. The abdomen was insufflated and briefly surveyed for any signs of injury. There were none. A 12 mm port was placed inferior to the umbilicus as well as a 5 mm port in the left lower quadrant. Both were done under direct vision. The patient was then placed in Trendelenburg position with the right side up. The small bowel was gently moved out of the way and the appendix appeared to be densely adherent to the pelvic sidewall on the right along the cecum. Hook cautery was used to carefully incise the peritoneum. This was taken up the lateral abdominal wall. The appendix was then visualized. This was taken until the tip of the appendix was encountered. I then placed an additional 5 mm port in the right upper abdomen and my assistant community director used this to retract the appendix anteriorly so that I could carefully dissect the cecal attachments medially. Cautery was necessary as the attachments were chronic appearing, not from acute fibrinous inflammation. I was able to stay safely on the appendix without injury to the cecum and dissected the appendix free. The appendix was markedly dilated, however not perforated. A small amount of additional dissection was needed at the cecum inferiorly so that I was able to view the base of the appendix. I was then able to grasp the appendix and pull it into view. A mesenteric window was then created between the base of the appendix and the appendiceal mesentery. Through this I passed a purple load endo KALLIE stapler and divided the appendix at its base. I then divided the appendiceal mesentery using a vascular load Endo-KALLIE stapler. The staple lines were inspected for bleeding. There was none. The appendix was then removed from the abdomen using an Endo-Catch bag. Once this was done, the ports were removed and the abdomen was desufflated and the 12 mm port site was closed with 0 Vicryl. The skin was then closed with absorbable subcuticular suture. Sterile dressings were then applied. Instrument sponge and needle counts were correct at the end of the case. The patient was then woken and transported to the PACU in stable condition. ? The patient tolerated the procedure well. Findings: Acute non perforated appendicitis, densely adherent to the lateral cecum and retroperitoneum Anesthesia: GETA Surgeon: Katrin Ruiz MD Estimated blood loss (mL): 5 Specimen: Appendix Condition: stable Disposition: PACU
[2022-12-25] MEDS: CEFAZOLIN 2 GM INJ IVP (07:04)
[2022-12-25] MEDS: BUPIVACAINE 0.25% 30 ML INJECTION (07:11)
--- NOTE | 2022-12-25 07:53 | W.ANESCHARGE ---
Anesthesia Charges Start Date/Time Anesthesia Start Date: 12/25/22 Anesthesia Start Time: 06:54 Stop Date/Time Anesthesia Stop Date: 12/25/22 Anesthesia Stop Time: 08:29 Summary Emergency: MDA
[2022-12-25] MEDS: HYDROCODONE-ACETAMIN 5-325 MG 1 TAB PO ×2 (10:08→14:52)
--- NOTE | 2022-12-25 12:28 | ONC.NURNOTE ---
Returned to his room via cart post op at 0900. alert and oriented. vs wnl. LS clear Heart reg. abd soft. sl tender. no bs . steristrips slight dried blood but intact. zo po in small amts. denies nausea. voided in good amt. pain at 1 after 2 vicodin. up in chair . SL IVF at 1215. then up in woo and steady. will be discharged home with before 3pm.
--- NOTE | 2022-12-25 14:16 | W.ANESCHARGE ---
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
[2022-12-27 15:00] LABS: Calcium* 9.2 mg/dL (8.4-10.6)
== END 2022-12-25 15:05 | disposition home or self-care (01) ==
LOC: ED 21:21 → MEDSURG 12-25 02:02 → SS 12-25 16:33 → MEDSURG 12-25 16:35
PROVIDERS: Family Medicine; Emergency Provider Emergency Medicine; PCP Family Medicine; Visit Provider Surgery
PROC: 0DTJ4ZZ Resection of Appendix, Percutaneous Endoscopic Approach (ICD-10-PCS; CPT 44970; principal; 2022-12-25 07:00)
DX: K35.80 Unspecified acute appendicitis (principal); K52.9 Noninfective gastroenteritis and colitis, unspecified
CPT/HCPCS: 44970; 00840; 36415; 74177; 80053; 81001; 83605; 83690; 85025; 88304; 99140; 99284; 99285; A9270; J0330; J0665; J0690; J1100; J1170; J1885; J2405; J2543; J2704; J3010; J7120; Q9967